=== PATIENT | male | born 1945 | race Caucasian/White ===

== ENCOUNTER 2021-12-27 10:04 | Outpatient (CLI) | payer MEDICARE, BC | END 2021-12-27 10:05 | disposition home or self-care (01) | LOC: BICRAD 10:04 | PROVIDERS: ATTEND Internal Medicine | DX: R06.02 Shortness of breath (principal) | CPT/HCPCS: 71046 ==

== ENCOUNTER 2024-07-02 13:06 | Outpatient (CLI) | payer MEDICARE, BC ==
[~2024-07-02 13:06] MED LIST: Iopamidol 370 76% 100 ML VIAL ONE
== END 2024-07-02 13:07 | disposition home or self-care (01) ==
LOC: BICCT 13:06
PROVIDERS: ATTEND Physician Assistant Medical
DX: R10.30 Lower abdominal pain, unspecified (principal)
CPT/HCPCS: 36415; 74177; 82565; Q9967